=== PATIENT | female | born 1975 | race Caucasian/White ===

== ENCOUNTER 2021-10-26 19:21 | Emergency (ER) | payer BC, OTHER ==
[2021-10-26 19:37] VITALS: BP 119/51; PULSE 63; TEMP 97; BMI 26.5
[2021-10-26] MEDS ORDERED: SULFAMETHOXAZOLE/TRIMETHOPRIM 800MG/160MG D.S. TABLET PO ONE (20:26)
[2021-10-26] MEDS ORDERED: SULFAMETHOXAZOLE/TRIMETHOPRIM 800MG/160MG D.S. TABLET ONE (20:32)
== END 2021-10-26 20:38 | disposition home or self-care (01) ==
LOC: JERFT 19:21 → JER 19:21 → JERFT 20:38
DX: H00.031 Abscess of right upper eyelid (principal)
CPT/HCPCS: 99283-25